=== PATIENT | male | born 1965 | race Two or more races ===

== ENCOUNTER 2019-11-08 03:39 | Emergency (ER) | payer MEDICAID ==
[~2019-11-08] VITALS: Ht 188 cm; Wt 99.8 kg
[~2019-11-08 03:39] MED LIST: BUPR75TA3 PO; MEPE50TA2 PO; QUET25TA PO; RISP1TAB7 PO; TRAZ-182 PO
[2019-11-08] MEDS ORDERED: IBUPROFEN 600 MG TABLET PO ONE ×2 (04:00→04:02)
--- NOTE | 2019-11-08 04:04 | NUR ---
[address] ER BED 15. INTOXIXATED, SMELLS OF ALCOHOL. NO RESP DISTRESS NOTED.C/O BACK PAIN X 2 MONTH, R HAND PAIN X 1 WEEK AND NEDICATION REFILL FOR SEROQUEL AND TRAZADONE. PT RATES HIS HAND PAIN 8/10 AND BACK PAIN 10/10. NOTED SWELLING ON R HAND. PT REPORTS THATS HE IS HAVING AUDITORY HALLUCINATION W/ VOICES TELLING HIM THAT HE IS WORTHLESS AND SHOULD TAKE PILLS TO END IT ALL. PT ADMITS TO THE THOUGHT BUT HAVE NO PLANS ON ACTING UPON IT. PT IS PLACED ON SUICIDE SAFETY PRECAUTION, PT STRIPPED OFF COTHING AND PLACED IN GOWN AND BELONGINGS ARE KEPT IN LOCKER LOCATED IN THE UTILITY ROOM. 1:1 SITTER ALSO AT BEDSIDE. MADE AWARE. ORDERS RECEIVED.
--- NOTE | 2019-11-08 04:19 | NUR ---
AALIYAH SHELDON AT BEDSIDE FOR BLOOD DRAWN AND LIONEL COLLECTED AND SUBMITTED TO LAB
[2019-11-08 04:24] LABS: APPEARANCE,URINE Clear (CLEAR); BILIRUBIN,URINE Negative (NEGATIVE); BLOOD, URINE Negative Ery/uL (NEGATIVE); COLOR,URINE Yellow (YELLOW); KETONES,URINE Negative (NEGATIVE); LEUKOCYTE ESTERASE ,URINE Negative (NEGATIVE); NITRITE, URINE Negative (NEGATIVE); PH,URINE 5.5 (5.0-8.0); PROTEIN,URINE Negative (NEGATIVE); UGLUCOSE 100 MG/DL mg/dL (NEGATIVE); UROBILINOGEN,URINE 0.2 EU/dL (0.2)
[2019-11-08 04:29] LABS: BASOPHILS % (AUTO) 0.6 % (0.0-2.0); EOSINOPHILS % (AUTO) 0.6 % (0.0-6.0); HEMATOCRIT 35 % (39-51); HEMOGLOBIN 12.1 g/dL (13.5-17.5); LYMPHOCYTES # (AUTO) 1.5 /CMM (0.8-4.8); MEAN CORPUSCULAR HGB CONC 34 g/dl (31.0-36.0); MEAN CORPUSCULAR VOLUME 81 fL (80-96); MONOCYTES # (AUTO) 0.8 /CMM (0.1-1.30); MONOCYTES % (AUTO) 13.3 % (2.0-12.0); NEUTROPHILS # (AUTO) 3.4 /CMM (1.8-8.9); NEUTROPHILS % (AUTO) 59.5 % (43.0-81.0); PLATELET COUNT (AUTO) 89 /CMM (150-450); RED BLOOD CELL COUNT(AUTO) 4.38 MIL/uL (4.5-6.0); WHITE BLOOD COUNT (AUTO) 5.8 K/uL (4.3-11.0)
[2019-11-08 04:42] LABS: ALBUMIN 3.4 g/dL (3.4-5.0); BILIRUBIN,DIRECT 0.2 mg/dL (0.0-0.2); BILIRUBIN,TOTAL 0.5 mg/dL (0.2-1.0); CALCIUM, SERUM 8.7 mg/dL (8.5-10.1); CREATININE 0.8 mg/dL (0.6-1.3); POTASSIUM 2.9 mmol/L (3.5-5.1); TOTAL PROTEIN, SERUM 7.4 g/dL (6.4-8.2)
[2019-11-08 05:34] LABS: EOSINOPHILS % (MANUAL) 1 % (0-4); LYMPHOCYTES % (MANUAL) 30 % (16-48); MONOCYTES % (MANUAL) 8 % (0-11.0); NEUTROPHILS % (MANUAL) 61 (42-76)
[2019-11-08 05:39] LABS: THYROID STIMULATING HORMONE 2.136 uIU/mL (0.358-3.74)
--- NOTE | 2019-11-08 05:51 | NUR ---
PT IN BED SLEEPING COMFORTABLE W/O ANY DISTRESS NOTED.
--- NOTE | 2019-11-08 12:00 | NUR ---
AROUSABLE BUT UNABLE TO GET UP.
--- NOTE | 2019-11-08 16:45 | NUR ---
SW called for SS consultation for alleged SI. However, the pt. is too altered due to ETOH to be assessed at the moment. SW will follow up 11/09/19 if pt. is still admitted and claiming SI. Fern in ER was updated.
--- NOTE | 2019-11-08 16:50 | NUR ---
PER MERNA ONEIL STATES PT IS NOT ALERT FOR ASSESSMENT AT THIS TIME WILL MONITOR AND TRY AGAIN TOMORROW MORNING. IF PT IS STILL SUICIDAL WHEN SOBER, PLEASE SEND CLINICALS TO [facility]
--- NOTE | 2019-11-08 17:00 | NUR ---
received a call from [place] outreach and education social worker director, regarding the patient alcohol level still high to keep patient in ER until level goes down.
--- NOTE | 2019-11-08 19:18 | NUR ---
DENIES SI/HI,AMBULATING STEADILY, VERBALIZED HE WANTS TO BE DISCHARGE, DR ARMENDARIZ INFORMED
[2019-11-08 21:23] VITALS: BP 118/78
--- NOTE | 2019-11-08 21:24 | NUR ---
PATIENT DISCHARGED IN STABLE CONDITION. -SOB NOTED. AOX4. VSS. AMBULATORY WITHOUT ASSISTANCE. TAP CARD PROVIDED
== END 2019-11-08 21:24 | disposition home or self-care (01) ==
LOC: ER 03:39
DX: S60.221A Contusion of right hand, initial encounter (principal); F19.90 Other psychoactive substance use, unspecified, uncomplicated; F31.9 Bipolar disorder, unspecified; F17.200 Nicotine dependence, unspecified, uncomplicated; Z59.0 Homelessness; Z79.899 Other long term (current) drug therapy; X58.XXXA Exposure to other specified factors, initial encounter; Y93.89 Activity, other specified; Y92.89 Other specified places as the place of occurrence of the external cause; Y99.8 Other external cause status
CPT/HCPCS: 36415; 72020-TC; 73130-TC; 80048-TC; 80076-TC; 80305; 81000-TC; 84443-TC; 85025-TC; G0480

== ENCOUNTER 2019-11-09 05:39 | Emergency (ER) | payer MEDICAID, OTHER ==
[~2019-11-09] VITALS: Ht 188 cm; Wt 99.8 kg
--- NOTE | 2019-11-09 05:51 | NUR ---
PATIENT ZONIA .C/O "WAS DRINKING AT [facility], GOT KICKED OUT" -SOB AOX4. VSS AT THIS TIME. -SI -HI NOTED.
[2019-11-09 06:39] LABS: BASOPHILS % (AUTO) 0.6 % (0.0-2.0); EOSINOPHILS % (AUTO) 1.1 % (0.0-6.0); HEMATOCRIT 36 % (39-51); HEMOGLOBIN 11.8 g/dL (13.5-17.5); LYMPHOCYTES % (AUTO) 23.6 % (20.0-44.0); MEAN CORPUSCULAR HGB CONC 33 g/dl (31.0-36.0); MEAN CORPUSCULAR VOLUME 82 fL (80-96); MONOCYTES # (AUTO) 0.5 /CMM (0.1-1.30); MONOCYTES % (AUTO) 10.6 % (2.0-12.0); NEUTROPHILS # (AUTO) 2.7 /CMM (1.8-8.9); NEUTROPHILS % (AUTO) 64.1 % (43.0-81.0); PLATELET COUNT (AUTO) 67 /CMM (150-450); RED BLOOD CELL COUNT(AUTO) 4.38 MIL/uL (4.5-6.0); WHITE BLOOD COUNT (AUTO) 4.3 K/uL (4.3-11.0)
[2019-11-09 06:50] LABS: CALCIUM, SERUM 8.3 mg/dL (8.5-10.1); CREATININE 0.9 mg/dL (0.6-1.3); POTASSIUM 2.9 mmol/L (3.5-5.1)
[2019-11-09 06:59] LABS: ALBUMIN 3.2 g/dL (3.4-5.0); BILIRUBIN,DIRECT 0.2 mg/dL (0.0-0.2); BILIRUBIN,TOTAL 0.4 mg/dL (0.2-1.0); SALICYLATE 2.5 mg/dL (2.8-20.0); TOTAL PROTEIN, SERUM 7.1 g/dL (6.4-8.2)
[2019-11-09 08:33] LABS: LYMPHOCYTES % (MANUAL) 27 % (16-48); MONOCYTES % (MANUAL) 8 % (0-11.0); NEUTROPHILS % (MANUAL) 65 (42-76)
--- NOTE | 2019-11-09 09:15 | NUR ---
BREAKFAST TRAY PROVIDED. TOLERATED PO WELL
--- NOTE | 2019-11-09 10:22 | NUR ---
spoke with kirby vences, she said that patient verbalized that he is still suicidal when she talked to him this morning. waiting on alcohol to go down below 100 and then , clinicals will be sent to [facility] in [facility] for evaluation, dr anderson informed
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
--- NOTE | 2019-11-09 10:54 | NUR ---
[facility] Chaka Mitchell Referral: DAVID offered the pt. voluntary placement at [facility] and the pt. was agreeable to plan. DAVID contacted [facility] Intake [phone] and spoke to Neville, to begin the referral process. Per Neville, Clinicals must be faxed to ATTN: Neville at FAX# [phone] only after the pt. is medically cleared by Physician and the pt.s alcohol levels are below 100. DAVID unable to send current clinicals as the pt.'s ETOH levels are too high. DAVID communicated to ER Nurse. Addendum: 11/09/19 at 1111 by OLIVA HERNANDEZ [facility] Chaka Mitchell;
[2019-11-09 14:51] VITALS: BP 136/82
--- NOTE | 2019-11-09 14:52 | NUR ---
PATIENT ASLEEP. EASILY AROUSED. VSS.
--- NOTE | 2019-11-09 17:20 | NUR ---
PT AAOX3. AMBULATORY WITH STEADY GAIT. PT REFUSED TO STAY IN BED. PT VERBALIZED HE IS LEAVING. AWARE.
== END 2019-11-09 18:00 | disposition left against medical advice (07) ==
LOC: ER 05:39
DX: R45.851 Suicidal ideations (principal); F10.129 Alcohol abuse with intoxication, unspecified; F31.9 Bipolar disorder, unspecified; F17.200 Nicotine dependence, unspecified, uncomplicated; Y90.8 Blood alcohol level of 240 mg/100 ml or more; Z59.0 Homelessness; Z79.899 Other long term (current) drug therapy
CPT/HCPCS: 36415; 80048; 80076; 80307; 80329; 85025; 99284; G0480